=== PATIENT | male | born 1990 | race Caucasian/White ===

== ENCOUNTER 2017-01-07 20:44 | Emergency (ER) | payer BC ==
[2017-01-07 21:15] VITALS: RESP 18
[2017-01-07] MEDS ORDERED: TOPICAL SKIN ADHESIVE 1 EACH AMP TOPICAL ONE (21:55)
--- NOTE | 2017-01-07 22:17 | CT ---
EXAMINATION TYPE: CT brain wo con DATE OF EXAM: 01/07/2017 10:12 PM COMPARISON: NONE HISTORY: pt states of laceration behind right ear after fall injury. CT DLP: 906.2 mGycm Automated exposure control for dose reduction was used. FINDINGS: The ventricles and sulci appear normal. There is no mass effect nor midline shift. There is no sign o f intracranial hemorrhage. The calvarium is intact. IMPRESSION: Negative unenhanced head CT scan.
--- NOTE | 2017-01-07 22:21 | ED ---
Wound/Laceration HPI - General Chief Complaint: Wound/Laceration Stated Complaint: laceration behind right ear Time Seen by Provider: 01/07/17 21:43 Source: patient, RN notes reviewed Mode of arrival: ambulatory Limitations: no limitations - History of Present Illness Initial Comments: 26 yo male presents to the ER with cc of presents to emergency department with chief complaint of head injury. Patient will out of bed. Patient now the laceration extends right ear. PEr Family has been drinking tonight. Patient denies a headache. He states he has no pain. He states he just like his laceration fixed. Patient denies any loss of consciousness with the fall. Patient states he just rolled out of bed.Patient denies any recent fever, chills , shortness of breath, chest pain, back pain, abdominal pain, nausea vomiting, numbness or tingling, dysuria or hematuria, constipation or diarrhea, headaches or visual changes, or any other current symptoms. - Related Data Home Medications Medication Instructions Recorded Confirmed No Known Home Medications [No 01/07/17 01/07/17 Known Home Medications] Allergies Allergy/AdvReac Type Severity Reaction Status Date / Time Penicillins Allergy Rash/Hives Verified 01/07/17 21:55 Review of Systems ROS Statement: Those systems with pertinent positive or pertinent negative responses have been documented in the HPI. ROS Other: All systems not noted in ROS Statement are negative. Past Medical History Past Medical History: No Reported History History of Any Multi-Drug Resistant Organisms: None Reported Past Surgical History: No Surgical Hx Reported Past Psychological History: No Psychological Hx Reported Smoking Status: Former smoker Past Alcohol Use History: Heavy Past Drug Use History: None Reported General Exam - General Exam Comments Initial Comments: General: The patient is awake and alert, in no distress, and does not appear acutely ill. Eye: Pupils are equal, round and reactive to light, extra-ocular movements are intact; there is normal conjunctiva bilaterally. No signs of icterus. Ears, nose, mouth and throat: There are moist mucous membranes. Patient does appear to have a laceration behind the right ear in a hematoma to the right mastoid Neck: The neck is supple, there is no tenderness. Cardiovascular: There is a regular rate and rhythm. No murmur, rub or gallop is appreciated. Respiratory: Lungs are clear to auscultation, respirations are non-labored, breath sounds are equal. No wheezes, stridor, rales, or rhonchi. Gastrointestinal: Soft, non-distended, non-tender abdomen without masses or organomegaly noted. There is no rebound or guarding present. No CVA tenderness. Bowel sounds are unremarkable. Back: There is no tenderness to palpation in the midline. There is no obvious deformity. No rashes noted. Musculoskeletal: Normal ROM, no tenderness, There is no pedal edema. There is no calf tenderness or swelling. Sensation intact. Pulses equal bilaterally 2+. Neurological: CN II-XII intact, There are no obvious motor or sensory deficits. Coordination appears grossly intact. Speech is normal. Skin: Skin is warm and dry and no rashes or lesions are noted. Psychiatric: Cooperative, appropriate mood & affect, normal judgment. Limitations: no limitations Course Vital Signs 01/07/17 01/07/17 21:10 22:29 Temperature 98.5 F 98.1 F Pulse Rate 91 103 H Respiratory 18 18 Rate Blood Pressure 134/80 138/99 O2 Sat by Pulse 100 99 Oximetry Procedures - Procedures Initial comment: The area was cleaned and prepped. Patient underwent dermabond repair. Patient tolerated well. Medical Decision Making - Medical Decision Making 26-year-old male presents to the emergency department with a chief complaint of laceration behind the right ear after fall. Patient underwent a CT which is negative. Patient underwent Dermabond repair of the laceration. This time we discussed return parameters. Patient family plan all questions answered. They will be discharged home. Disposition Clinical Impression: Fall, Scalp hematoma, Laceration of right ear, Concussion Disposition: HOME SELF-CARE Condition: Stable Instructions: Concussion (ED), Skin Adhesive Care (ED) Additional Instructions: Please use medication as discussed. Please follow up with family doctor if symptoms have not improved over the next two days. Please return to the emergency room if your symptoms increase or worsen or for any other concerns. Referrals: None,Stated [Primary Care Provider] - 1-2 days Abigail Watson MD [STAFF PHYSICIAN] - 1-2 days Time of Disposition: 22:48
[2017-01-07 22:35] VITALS: BP 138/99; PULSE 103; TEMP 98.1
== END 2017-01-07 22:55 | disposition home or self-care (01) ==
LOC: EC 20:44
DX: S06.0X0A Concussion without loss of consciousness, initial encounter (principal); S01.311A Laceration without foreign body of right ear, initial encounter; Z87.891 Personal history of nicotine dependence; Z88.0 Allergy status to penicillin; W06.XXXA Fall from bed, initial encounter
CPT/HCPCS: 12011; 70450; 99283

== ENCOUNTER 2017-01-11 11:31 | Emergency (ER) | payer BC ==
[2017-01-11 11:46] VITALS: BP 147/91; PULSE 100; RESP 16; TEMP 98.8
[2017-01-11] MEDS ORDERED: DIPH,PERTUS(ACELL)TETVAC-LF 0.5 ML VIAL IM ONE (12:02)
[2017-01-11] MEDS ORDERED: TOBRAMYCIN 0.3% OPHTH DROPS 5 ML BTL LEFT EYE STA (12:02)
--- NOTE | 2017-01-11 12:08 | ED ---
Eye Problem HPI - General Chief complaint: Eye Problems Stated complaint: eye pain Time Seen by Provider: 01/11/17 11:49 Source: patient Mode of arrival: ambulatory Limitations: no limitations - History of Present Illness Initial comments: 26-year-old male patient presents to emergency department today for complaints of left eye pain, swelling, and drainage. Patient states last night his 2-year- old son accidentally poked him in the eye with his finger. Patient states that he did have immediate onset of pain and difficulty opening the eye, and when he woke this morning it was swollen shut and had some purulent discharge. Patient states that he is light sensitive. Patient usually wears contact lenses, and was unable to wear them today so his vision has been blurred. Patient denies any headache, bloody discharge, fever, or chills. Patient denies any other injury, denies any chest pain, shortness of breath, back pain, abdominal pain, nausea, vomiting, weakness, dizziness, laceration, diarrhea, or difficulty with urination. Patient is unsure when his last tetanus shot was. - Related Data Previous Rx's Medication Instructions Recorded Tobramycin [Tobrex 0.3% Ophth Soln] 2 drop BOTH EYES Q4H #5 ml 01/11/17 Allergies Allergy/AdvReac Type Severity Reaction Status Date / Time Penicillins Allergy Rash/Hives Verified 01/11/17 12:08 Review of Systems ROS Statement: Those systems with pertinent positive or pertinent negative responses have been documented in the HPI. ROS Other: All systems not noted in ROS Statement are negative. Past Medical History Past Medical History: No Reported History History of Any Multi-Drug Resistant Organisms: None Reported Past Surgical History: No Surgical Hx Reported Past Psychological History: No Psychological Hx Reported Smoking Status: Former smoker Past Alcohol Use History: Heavy Past Drug Use History: None Reported General Exam Limitations: no limitations General appearance: alert, in no apparent distress Head exam: Present: atraumatic, normocephalic, normal inspection Eye exam: Present: PERRL, EOMI, conjunctival injection (Left eye), periorbital swelling, other (2 drops of proparacaine were instilled into the left eye, complete relief of pain obtained, fluorescein stain with Wood lamp examination was performed which did reveal a large corneal abrasion). Absent: normal appearance (Purulent drainage noted, edema to upper and lower lid noted - left eye), scleral icterus, nystagmus, periorbital tenderness Expanded Eyelids: Swelling: Right Pupils: Regular, Round: Bilateral, Reactive: Bilateral Sclera/Conjunctival: Injection: Left ENT exam: Present: normal exam, normal oropharynx, mucous membranes moist, TM's normal bilaterally Neck exam: Present: normal inspection, full ROM. Absent: tenderness, meningismus, lymphadenopathy Respiratory exam: Present: normal lung sounds bilaterally. Absent: respiratory distress, wheezes, rales, rhonchi, stridor Cardiovascular Exam: Present: regular rate, normal rhythm, normal heart sounds. Absent: systolic murmur, diastolic murmur, rubs, gallop, clicks GI/Abdominal exam: Present: soft, normal bowel sounds. Absent: distended, tenderness, guarding, rebound, rigid Extremities exam: Present: normal inspection, full ROM, normal capillary refill. Absent: tenderness, pedal edema, joint swelling, calf tenderness Back exam: Present: normal inspection Neurological exam: Present: alert, oriented X3, CN II-XII intact Psychiatric exam: Present: normal affect, normal mood Skin exam: Present: warm, dry, intact, normal color. Absent: rash Course Vital Signs 01/11/17 11:44 Temperature 98.8 F Pulse Rate 100 Respiratory 16 Rate Blood Pressure 147/91 O2 Sat by Pulse 100 Oximetry Medical Decision Making - Medical Decision Making 26-year-old male patient presents to emergency department today for evaluation of left eye discomfort and swelling, after his son poked him in the eye with his finger last night. Fluorescein stain with Wood lamp examination was performed which did reveal a large abrasion to the left cornea. Patient will be given 2 drops of Tobrex ophthalmic solution to the left eye prior to discharge and given a prescription for the same. Patient also instructed to call [address] [facility] magistrate Dr. Franco today to make an appointment as soon as possible. Patient instructed to return for any new, worsening, or concerning symptoms. Patient understands and agrees with these instructions. Disposition Clinical Impression: Corneal abrasion Disposition: HOME SELF-CARE Condition: Stable Instructions: Corneal Abrasion (ED) Additional Instructions: Use 2 drops to left eye every 2 hours for the first 24 hours, then every 4 hours for one week. Use anti-inflammatory medication such as ibuprofen for pain and swelling. Ice to the area for swelling. Follow-up with industrial court magistrate within 1-2 days. Return for any new, worsening, or concerning symptoms. Prescriptions: Tobramycin [Tobrex 0.3% Ophth Soln] 2 drop BOTH EYES Q4H #5 ml Referrals: None,Stated [Primary Care Provider] - 1-2 days Bria Franco MD [STAFF PHYSICIAN] - 1-2 days Time of Disposition: 12:07
[2017-01-11] MEDS ORDERED: PROPARACAINE 0.5% OPHTH DROPS 15 ML BTL LEFT EYE STA (12:16)
== END 2017-01-11 12:28 | disposition home or self-care (01) ==
LOC: EC 11:31
DX: S05.02XA Injury of conjunctiva and corneal abrasion without foreign body, left eye, initial encounter (principal); Z23 Encounter for immunization; Z87.891 Personal history of nicotine dependence; Z88.0 Allergy status to penicillin; X58.XXXA Exposure to other specified factors, initial encounter
CPT/HCPCS: 90471; 90715; 99283

== ENCOUNTER → 2018-01-28 | Outpatient (CLI) | payer OTHER ==
--- NOTE | 2018-01-28 17:26 | XR ---
EXAMINATION TYPE: XR hand complete LT DATE OF EXAM: 01/28/2018 COMPARISON: NONE HISTORY: Pain and swelling TECHNIQUE: 3 views FINDINGS: Metacarpals are intact. I see no fracture nor dislocation. Joint spaces are normal. IMPRESSION: Negative left hand exam.
== END | disposition home or self-care (01) ==
LOC: RADXRMAIN 16:48
PROVIDERS: ATTEND Emergency Medicine
DX: S60.222A Contusion of left hand, initial encounter (principal)